=== PATIENT | female | born 1990 | race Caucasian/White ===

== ENCOUNTER 2016-06-03 16:24 | Observation (INO) | payer OTHER ==
[2016-06-03] MEDS ORDERED: DEXTROSE 5%-LACTATED RINGERS 1,000 ML IV PRN (16:49)
[2016-06-03] MEDS ORDERED: PENICILLIN G POTASSIUM 5 MILLIONUNT in DEXTROSE 5 % IN WATER 100 ML IV ONE ×2 (16:49)
[2016-06-03] MEDS ORDERED: NIFEdipine 10 MG CAPSULE PO STA (16:49)
[2016-06-03] MEDS ORDERED: RINGERS SOLUTION,LACTATED 1,000 ML IV PRN (16:49)
[2016-06-03] MEDS ORDERED: BETAMETH ACET/BETAMET SOD PHOS 6 MG/ML VIAL IM SCH (17:00)
[2016-06-03] MEDS ORDERED: PENICILLIN G POTASSIUM 2.5 MILLIONUNT in DEXTROSE 5 % IN WATER 100 ML IV SCH ×2 (20:50)
[2016-06-03] MEDS ORDERED: hydrOXYzine PAMOATE 50 MG CAPSULE PO ONE (22:30)
[2016-06-03] MEDS ORDERED: hydrOXYzine PAMOATE 25 MG CAPSULE ONE (22:41)
[2016-06-04 06:43] VITALS: BP 108/56
== END 2016-06-04 08:28 | disposition home or self-care (01) ==
LOC: OBCLINIC 16:24 → OB 21:52
PROVIDERS: ADMIT Obstetrics & Gynecology; ATTEND Obstetrics & Gynecology
DX: O60.03 Preterm labor without delivery, third trimester (principal); Z3A.30 30 weeks gestation of pregnancy; O99.333 Smoking (tobacco) complicating pregnancy, third trimester; O26.873 Cervical shortening, third trimester
CPT/HCPCS: 59025; 96365; 96375; G0378

== ENCOUNTER 2016-07-06 10:45 | Emergency (ER) | payer OTHER ==
[2016-07-06 11:08] LABS: Hemoglobin 10.1 gm/dL (12.5-16.0); Mean Cell Volume 82.2 fl (78-100); Mean Corpuscular Hemoglobin 26.8 pg (27-31); Mean Corpuscular Hgb Conc 32.6 g/dl (32-36); Mean Platelet Volume 8.2 fl (6.0-9.5); Neutrophil # 9.1 K/mm3 (1.3-6.0); Platelet Count 214 K/mm3 (150-450); Red Blood Count 3.77 M/mm3 (4.2-5.4); Red Cell Distribution Width 13.4 % (11.5-14.0); White Blood Count 12.4 K/mm3 (4.0-10.5)
[2016-07-06] MEDS ORDERED: DEXTROSE 5%-LACTATED RINGERS 1,000 ML IV PRN (11:08)
[2016-07-06 11:20] LABS: Albumin * 2.6 gm/dl (3.4-5.0); BUN/Creatinine Ratio 6.5 (9.0-21.6); Bilirubin, Total 0.3 mg/dL (0.0-1.1); Ca. Corrected For Albumin 9.3 mg/dL (8.4-10.2); Calcium * 8.5 mg/dL (7.9-10.9); Carbon Dioxide 25.9 mmol/L (24-32.6); Magnesium 1.5 mg/dL (1.2-2.8); Potassium 3.9 mmol/L (3.4-4.6); Total Protein 6.5 gm/dL (6.2-8.2)
--- NOTE | 2016-07-06 12:52 | ERNOTE ---
Medical Problem HPI - General Chief Complaint: General Assessment Time Seen by Provider: 07/06/16 10:52 Source: patient, family - Immun/Allergies/Home Medications Immunizations: IMMUNIZATION HX Immunizations Up to Date Yes History of Influenza Vaccine Yes Hx Pneumococcal Vaccination No Allergies/Adverse Reactions: Allergies No Known Allergies Allergy (Verified 07/06/16 11:54) Home Medications: HOME MEDICATIONS Doxylamine Succinate [Unisom] 1 tab PO DAILY 05/19/16 [Last Taken 06/02/16 21:00 ] Ferrous Sulfate [Iron] 1 tab PO HS 05/19/16 [Last Taken 06/02/16 09:00] Vit#96/Ferrous Fum/FA [ S] 1 tab PO DAILY 05/19/16 [Last Taken 06/03/16] Progesterone [Progesterone Vaginal Suppository] 1 supp VG HS 05/19/16 [Last Taken 06/02/16 21:00] - History of Present History Narrative: Patient has been having spasms in her hands for the past 24 hours. She states that she's been having some low-grade diarrhea and is also worried that possibly her amniotic fluid had broken. She denies any vaginal bleeding or any extensive cramping in the pelvic area. Date (Duration): 07/05/16 Timing: intermittent Severity: mild Review of Systems - Review of Systems Constitutional: Present: See HPI EYE: Present: no symptoms reported ENT: Present: no symptoms reported Respiratory: Present: no symptoms reported Cardiology: Present: no symptoms reported Gastrointestinal/Abdominal: Present: diarrhea Genitourinary: Present: no symptoms reported Musculoskeletal: Present: no symptoms reported Skin: Present: no symptoms reported Neurological: Present: no symptoms reported Endocrine: Present: no symptoms reported Hematologic/Lymphatic: Present: no symptoms reported Psych: Present: no symptoms reported - Patient's Past Medical History Patient History - Medical: Anemia, Anxiety, Chronic Pain, Depression, Migraines , UTI'S Patient History - Cardiac/Respiratory: No pertinent hx Patient History - Cancer: No Hx of Cancer Patient History - Surgical Procedures: Appendectomy, T & A Patient History - Other: None LMP (Calendar): 09/08/15 - Family History Grandfather-Paternal Family History - Medical: No pertinent hx Family History - Cardiac/Respiratory: No pertinent hx Grandmother-Paternal Family History - Medical: , Arthritis Family History - Cardiac/Respiratory: No pertinent hx Brother Family History - Medical: ADHD, Bipolar, Other Family History - Cardiac/Respiratory: No pertinent hx - Social History Living Situations: home Abuse History: No History of abuse Psych History: Hx of Anxiety, Hx of Depression Does anyone smoke in the home?: Yes Alcohol Use: none Drug Use: none - Immunizations Immunizations Up to Date: Yes Hx Pneumococcal Vaccination: No History of Influenza Vaccine: Yes Physical Exam - Physical Exam General Appearance: Present: wd/wn, alert, mild distress Eye Exam: Normal inspection: bilateral, PERRL: bilateral Ears, Nose, Throat: Present: normal ENT inspection, H, normal pharynx Neck: Present: normal inspection, nontender Respiratory: Present: no respiratory distress, normal breath sounds, no accessory muscle use, chest nontender, lungs clear Cardiovascular/Chest: Present: regular rate, rhythm, no murmur, normal peripheral pulses Gastrointestinal/Abdominal: Present: normal bowel sounds, nontender, nondistended, soft, no organomegaly Rectal Exam: Present: deferred Back Exam: Present: normal inspection, normal range of motion Extremity Exam: Present: normal inspection, non-tender, normal range of motion, no edema, other - carpal pedal spasms Neurological Exam: Present: alert, oriented, normal mood/affect Skin Exam: Present: normal color, warm/dry Lymphatic Exam: Present: no adenopathy ED Progress - Results and Orders Patient's Lab Results:: I have reviewed the patient's lab results. - Vital Signs Patient's Vital Signs:: I have reviewed the patient's vital signs. Vital Signs: Vital Signs 07/06/16 07/06/16 07/06/16 11:01 11:28 11:34 Temperature 37.2 C 37.2 C Pulse Rate 93 80 80 Respiratory 18 16 Rate Blood Pressure 113/68 114/59 114/59 O2 Sat by Pulse 98 97 100 Oximetry 07/06/16 07/06/16 11:48 12:31 Temperature Pulse Rate 78 75 Respiratory 13 Rate Blood Pressure 105/59 93/56 O2 Sat by Pulse 97 98 Oximetry - CT/Ultrasound CT/Ultrasound Narrative: OB ultrasound - Progress/Reassessment Chief Complaint: General Assessment Progress:: Improved Plan - Plan Plan: While the patient was in the department we had been an NST done which was revealed that the patient was not in labor, pelvic examination was also undertaken and she was found to be 1 cm dilation of the cervical os and approximately 50% effaced with good ballottement, nitrazine was seen was negative. Departure - Departure Clinical Impression: Discomfort during , [place] spasm Disposition: Home self-care Condition: Good Instructions: Third Trimester of , [id number] Referrals: Marco Moore DO [Staff Physician] -
[2016-07-06 12:54] VITALS: BP 107/66
== END 2016-07-06 13:06 | disposition home or self-care (01) ==
LOC: ER 10:45
DX: R29.0 Tetany (principal); Z33.1 Pregnant state, incidental; Z57.31 Occupational exposure to environmental tobacco smoke

== ENCOUNTER 2016-07-25 19:18 | Inpatient (IN) | payer OTHER ==
[2016-07-25] MEDS ORDERED: RINGERS SOLUTION,LACTATED 1,000 ML IV ONE (23:24)
[2016-07-25] MEDS ORDERED: LIDOCAINE HCL 50 ML VIAL PERI PRN (23:24)
[2016-07-26] MEDS ORDERED: BUPIVACAINE HCL/0.9 % NACL/PF 250 ML EP PRN (00:19)
[2016-07-26] MEDS: DEXTROSE 5%-LACTATED RINGERS 1,000 ML IV PRN ×2 (00:20→05:04)
[2016-07-26] MEDS ORDERED: OXYTOCIN/DEXTROSE 5%-WATER 30 UNITS/500 ML BAG IV ONE ×2 (00:28→07:50)
[2016-07-26] MEDS ORDERED: fentaNYL CITRATE/PF 50 MCG/ML AMPUL IT SCH (00:30)
--- NOTE | 2016-07-26 00:30 | OR ---
Anesthesia Pre Procedure Eval Date of Service: 07/26/16 Pre Procedure Evaluation: Last Vital Signs Temp 37.2 C 07/06/16 11:34 Pulse Resp BP 107/66 07/06/16 12:53 Pulse Ox Anesthesia Pre Procedure Evaluation Heart Rate:82 Blood Pressure:108/58 Termperature:37.0 Respiratory Rate:20 SaO2:100 DATE: 07/26/2016 TIME: 00 25 INDICATIONS: Active labor, labor pain PAST MEDICAL HISTORY: Multiple rotation actively requesting labor analgesia EXAM: Heart S1-S2 regular; lungs clear ASSESSMENT OF MEDICAL STATUS: Appropriate candidate for labor analgesia PLANNED PROCEDURE: Epidural placement for labor analgesia Home Medications: HOME MEDICATIONS Vit#96/Ferrous Fum/FA [ S] 1 tab PO DAILY 05/19/16 [Last Taken 06/03/16]
--- NOTE | 2016-07-26 01:00 | OR ---
Anesthesia Procedure Note - Anesthesia Procedure Note Date of Service: 07/26/16 Narrative: Vital Signs - Last Taken Temp 37.2 C 07/06/16 11:34 Pulse Resp BP 107/66 07/06/16 12:53 Pulse Ox 07/26/16 00:58 ANESTHESIA PROCEDURE NOTE Date of Procedure: 07/26/2016 Time of procedure: 0025. Performed by: OMERO Lindsay CRNA, MSN Emt B: Zion Rodriguez RN. Preprocedure diagnosis: Active labor, labor pain. Post procedure diagnosis: Same. Procedure: Labor Epidural Placement L3 4. Indications: Labor pain. Findings: See below. Details of the procedure: The patient was placed on the side of the bed in sitting position. The patient was prepped with DuraPrep and draped in a sterile fashion. Lidocaine 1% was infiltrated to the skin and subcutaneous tissues at the level of the L3 4 interspace. The epidural space was identified using a 18-gauge Tuohy needle with [id number] technique. Fentanyl 20 g was given intrathecally the intrathecal needle was then removed and the epidural catheter was threaded approximately 4 cm, the epidural needle was then removed, and after careful aspiration 3 mL of 1.5% lidocaine with 1-200,000 epinephrine was injected without change in maternal heart rate or sensorium. The catheter was then taped in place. EBL: Minimal. Fluids: N/A. Specimen: N/A. Post procedure condition: The patient tolerated the procedure well with. Good Relief. No complications were noted. Thank you for this consultation. Jordan Massey CRNA, ARNP, MSN
--- NOTE | 2016-07-26 02:12 | PN ---
Progess Note - Interim Narrative: 07/26/16 02:10 Patient comfortable with epidural Vital signs stable. FHT: 120 baseline, reassuring Contractions q 2-3 min Cervix: 7/80/-1, AROM-clear Impression: Intrauterine at 37-6/7 weeks in labor Plan: Continue present plan
--- NOTE | 2016-07-26 07:48 | OR ---
Operative Report - Dictated Report Narrative: Spontaneous vaginal delivery of viable female at 0710 on 07/26/2016 with Apgars 9 and 9, weighing 2700 g, in OA position. Nuchal cord 2, body cord 1. Cord clamping delayed approximately 1 minute Placenta delivered complete, intact, with three vessel cord Estimated blood loss: less than 50 ml Lacerations: None History for MU Definition: * The number of deliveries resulting in a live the patient experienced prior to current hospitalization * The previous delivery of live twins or any live multiple gestation is considered one live event. *If primagravida or nulliparous is documented select zero for the number of previous live births. Live Events: 3
[2016-07-26] MEDS ORDERED: oxyCODONE HCL/ACETAMINOPHEN 1 TAB TABLET PO PRN (07:50)
[2016-07-26] MEDS ORDERED: GLYCERIN/WITCH HAZEL LEAF 40 APPL BOX TP PRN (07:50)
[2016-07-26] MEDS ORDERED: BISACODYL 10 MG SUPP.RECT RC PRN (07:50)
[2016-07-26] MEDS ORDERED: SENNOSIDES 8.6 MG TABLET PO PRN (07:50)
[2016-07-26] MEDS ORDERED: HYDROCORTISONE 30 APPL TUBE TP PRN (07:50)
[2016-07-26] MEDS ORDERED: BENZOCAINE/MENTHOL 81 SPRAY CAN TP PRN (07:50)
[2016-07-26] MEDS: oxyCODONE HCL/ACETAMINOPHEN 1 TAB TABLET PO PRN ×2 (10:16→21:35)
[2016-07-26] MEDS: IBUPROFEN 800 MG TABLET PO PRN ×2 (10:16→21:35)
[2016-07-26] MEDS: DOCUSATE SODIUM 100 MG CAPSULE PO SCH ×2 (10:19→20:13)
[2016-07-26] MEDS: PRENATAL VIT#96/FERROUS FUM/FA 1 TAB TABLET PO SCH (10:19)
[2016-07-26] MEDS ORDERED: ONDANSETRON HCL 4 MG TABLET PO PRN (18:49)
[2016-07-27] MEDS: oxyCODONE HCL/ACETAMINOPHEN 1 TAB TABLET PO PRN ×5 (00:58→21:28)
[2016-07-27] MEDS: IBUPROFEN 800 MG TABLET PO PRN ×3 (07:11→21:27)
--- NOTE | 2016-07-27 08:55 | PN ---
Subjective - Date and Time Seen Date: 07/27/16 Time: 08:55 - seen at 6:40 AM Objective - Vitals Vitals: Last Vital Signs Temp 36.9 C 07/27/16 01:02 Pulse 76 07/27/16 01:02 Resp 16 07/27/16 01:02 BP 107/58 07/27/16 01:02 Pulse Ox 99 07/27/16 01:02 Patient denies complaints. Lochia wnl Abdomen - soft, nontender Uterus - firm, at umbilicus - 1 No calf tenderness Impression: day #1 - s/p spontaneous vaginal delivery. Plan: Continue routine care Cauti Physician Documentation - Urinary Catheter Management Urethral (Padron) Date of Insertion: 07/26/16 Time of Insertion: 01:45
[2016-07-27] MEDS: PRENATAL VIT#96/FERROUS FUM/FA 1 TAB TABLET PO SCH (09:25)
[2016-07-27] MEDS: DOCUSATE SODIUM 100 MG CAPSULE PO SCH ×2 (09:25→21:25)
[2016-07-28] MEDS: oxyCODONE HCL/ACETAMINOPHEN 1 TAB TABLET PO PRN (07:28)
[2016-07-28] MEDS: IBUPROFEN 800 MG TABLET PO PRN (07:28)
[2016-07-28 08:20] VITALS: BP 108/66
--- NOTE | 2016-07-28 17:03 | PN ---
Subjective - Date and Time Seen Date: 07/28/16 Time: 17:03 - patient seen in between 8:30 and 9 this morning Objective - Vitals Vitals: Last Vital Signs Temp 36.8 C 07/28/16 08:10 Pulse 67 07/28/16 08:10 Resp 16 07/28/16 08:10 BP 108/66 07/28/16 08:10 Pulse Ox 98 07/28/16 08:10 Patient denies complaints. Lochia wnl Abdomen - soft, nontender Uterus - firm, at umbilicus - 2 No calf tenderness Impression: day #2 - s/p spontaneous vaginal delivery. Plan: Routine discharge instructions Cauti Physician Documentation - Urinary Catheter Management Urethral (Padron) Date of Insertion: 07/26/16 Time of Insertion: 01:45
== END 2016-07-28 13:40 | disposition home or self-care (01) | DRG 775 ==
LOC: OBCLINIC 19:18 → OB 23:00 → MS 07-27 19:21
PROVIDERS: ADMIT Obstetrics & Gynecology; ATTEND Obstetrics & Gynecology
PROC: 10E0XZZ Delivery of Products of Conception, External Approach (ICD-10-PCS; principal; 2016-07-26)
PROC: 10907ZC Drainage of Amniotic Fluid, Therapeutic from Products of Conception, Via Natural or Artificial Opening (ICD-10-PCS; 2016-07-26)
PROC: 4A1HXCZ Monitoring of Products of Conception, Cardiac Rate, External Approach (ICD-10-PCS; 2016-07-26)
PROC: 3E0S3CZ (ICD-10-PCS; 2016-07-26)
DX: O69.81X0 Labor and delivery complicated by cord around neck, without compression, not applicable or unspecified (principal); O99.334 Smoking (tobacco) complicating childbirth; F17.210 Nicotine dependence, cigarettes, uncomplicated; F41.9 Anxiety disorder, unspecified; Z3A.38 38 weeks gestation of pregnancy; Z37.0 Single live birth

== ENCOUNTER 2016-08-20 07:49 | Day surgery (SDC) | payer OTHER ==
[~2016-08-20 07:49] MED LIST: RINGER'S SOLUTION,LACTATED 1,000 ML IV PRN
[2016-08-20] MEDS ORDERED: RINGER'S SOLUTION,LACTATED 1,000 ML IV ONE ×2 (08:29→10:46)
[2016-08-20] MEDS ORDERED: BUPIVACAINE HCL/EPINEPHRINE 50 ML VIAL IJ ONE (09:15)
--- NOTE | 2016-08-20 11:07 | OR ---
Operative Report - Dictated Report Narrative: Date: 08/20/2016 Preoperative diagnosis: Incarcerated umbilical hernia Postoperative diagnosis: same Procedure: Primary umbilical hernia repair. Staff surgeon: Hiram Tubbs MD Marketing Analytics Manager surgeon: Marco Moore DO Anesthesia: GET EBL: Minimal Drains: none Complications: none apparent Description of procedure: This patient underwent the smooth induction of general endotracheal anesthesia for a laparoscopic tubal ligation performed by Dr. Moore. The abdomen was prepped and draped in a sterile fashion. A field block was performed with marcaine and a curvilinear infraumbilical incision was carried out. The hernia sac was opened and the laparoscopy was performed through this defect. Following the conclusion of his procedure the fascial rim was completely dissected free and the hernia sac and incarcerated fat contents were removed from the undersurface of the dermis of the umbilicus. The defect measured approximately 2 cm in diameter. The midline fascia was considerably thinned out. The defect was closed in the midline with interrupted [id number] 0-vicryl sutures x 3. Following this Dr. Moore repaired her diastasis recti. A suprapubic port site and her umbilical incision were closed with interrupted buried subcuticular stitches of 4-0 vicryl and sealed with dermabond. The patient tolerated the procedure well without apparent complications and was discharged from the operating room in stable condition.
[2016-08-20] MEDS ORDERED: RINGER'S SOLUTION,LACTATED 1,000 ML IV PRN (11:38)
[2016-08-20] MEDS ORDERED: MORPHINE SULFATE 2 MG/ML DISP.SYRIN IV PRN (11:39)
[2016-08-20] MEDS ORDERED: IBUPROFEN 800 MG TABLET PO PRN (11:40)
--- NOTE | 2016-08-20 11:52 | OR ---
Operative Report - Dictated Report Narrative: DATE OF PROCEDURE: 08/20/2016 INDICATION: 86 year old female desires permanent sterilization by removal of both fallopian tubes as well as repair of umbilical hernia and rectus diathesis. PREOPERATIVE DIAGNOSIS: Multiparity, desires permanent sterilization, umbilical hernia with incarcerated fat, rectus diathesis POSTOPERATIVE DIAGNOSIS: Same OPERATION: Laparoscopic bilateral salpingectomy, repair of rectus diathesis, and repair of umbilical hernia by Dr. Tubbs SURGEON: Mathew Moore D.O. ROTOFORMER BACKTENDER: Clara Haines M.D. ANESTHESIA: General ESTIMATED BLOOD LOSS: Minimal FLUID REPLACEMENT: 700 mL URINE OUTPUT: Not measured FINDINGS: Normal uterus, tubes, and ovaries. Umbilical hernia with incarcerated fat pad, rectus diathesis SPECIMEN(S): Fallopian tubes DRAINS: none TECHNIQUE: The patient was taken to the operating room and placed in dorsal lithotomy position after adequate general anesthesia was obtained. The anterior lip of the cervix was grasped with a long Allis clamp and a uterine manipulator was inserted into the cervical canal and attached to the Allis clamps as a means to manipulate the uterus. Bladder was drained prior to patient entering the OR. Gloves were changed and attention was turned to the abdomen where the umbilicus and suprapubic region were injected with 0.5% marcaine with epinephrine. Dr Tubbs made an umbilical incision over the fascial defect through which the 10mm operative scope was placed. A suture was placed to seal the scope. Pneumoperitoneum was created with CO2 gas. A 5 mm non-bladed trocar was inserted suprapubically under direct visualization. Through these 2 ports the surgery was carried out with findings as noted above. The right fallopian tube was identified and followed out to the fimbriated end. The fallopian tube was coagulated with the Kleppinger's approximately 2 cm from the cornual region and along the mesosalpinx. The tube was then excised with laparoscopic scissors and placed in the anterior cul de sac. The exact same was done on the patient's left side. Both tubes were then removed with the scope through the umbilical incision. The CO2 gas was removed from the abdominal cavity. The trochar was removed under direct visualization. Dr. Tubbs repaired the hernia - see his operative note for details. The medial surface of the rectus abdominis muscle was grasped on either side with a Arti clamp just below the umbilicus and approximated with a single 0 Vicryl suture. The subcutaneous tissue was dissected above the umbilicus to allow another 0 Vicryl suture to be placed through the rectus abdominis muscle cephalad to the umbilicus. Incisions were closed by Dr. Tubbs. Instruments were removed from the cervix and vagina. Sponge, lap, instrument, and needle count were correct x 2. DISPOSITION: The patient was awakened and transferred to post anesthesia care unit in good condition.
[2016-08-20] MEDS: oxyCODONE HCL/ACETAMINOPHEN 1 TAB TABLET PO PRN ×2 (11:53→12:32)
[2016-08-20] MEDS ORDERED: oxyCODONE HCL/ACETAMINOPHEN 1 TAB TABLET PO ONE (12:45)
[2016-08-20 17:05] VITALS: BP 107/78
== END 2016-08-20 07:50 | disposition home or self-care (01) ==
LOC: AMB 07:49
PROVIDERS: ATTEND Obstetrics & Gynecology
PROC: 0UT74ZZ Resection of Bilateral Fallopian Tubes, Percutaneous Endoscopic Approach (ICD-10-PCS; principal; 2016-08-20 09:25)
PROC: 0WQF0ZZ Repair Abdominal Wall, Open Approach (ICD-10-PCS; 2016-08-20 09:25)
DX: Z30.2 Encounter for sterilization (principal); K42.0 Umbilical hernia with obstruction, without gangrene; F17.200 Nicotine dependence, unspecified, uncomplicated; Z68.20 Body mass index [BMI] 20.0-20.9, adult

== ENCOUNTER 2016-10-25 14:09 | Emergency (ER) | payer OTHER ==
--- NOTE | 2016-10-25 14:58 | ERNOTE ---
ER Female HPI Date of Service: 10/25/16 Stated Complaint: SICK, UTI Presenting Symptoms: other - "I think I have a UTI" Time Seen by Provider: 10/25/16 14:54 Source: patient Exam Limitations: no limitations Immunizations: IMMUNIZATION HX Immunizations Up to Date Yes History of Influenza Vaccine Yes Hx Pneumococcal Vaccination No Allergies/Adverse Reactions: Allergies No Known Allergies Allergy (Verified 10/25/16 14:23) Home Medications: HOME MEDICATIONS Cefuroxime Axetil [Ceftin] 250 mg PO Q12H #14 tab 10/25/16 [Last Taken Unknown] - History of Present Illness Narrative: Patient presents relating "I think I have a UTI". She relates that everyone in the family has had a vomiting/diarrhea illness. She has also had one episode of vomiting and some non-bloody diarrhea but thinks she has a UTI as she has had some dysuria. Had tubal ligation. Mild dysuria. No fever or abdominal pain. Has not seen anyone else for this. Nothing makes this better or worse. No flank pain. Timing: Present: other - with urination Quality: Present: mild Onset Location: Present: other - dysuria Radiation: Present: none Activities at Onset: Present: none Prior Abdominal Problems: Present: none Sexual [place] History: Present: other - tubal ligation Modifying Factors - (Improves): Present: other - nothing Modifying Factors - (Worsens): Present: other - urinating Associated Symptoms: Present: dysuria. Absent: fever/chills, abdominal pain, urinary frequency, low back pain Prior Treatment: Absent: recently seen Review of Systems - Review of Systems Constitutional: Absent: fever Respiratory: Absent: shortness of breath Cardiology: Absent: chest pain Gastrointestinal/Abdominal: Present: See HPI Genitourinary: Present: dysuria Musculoskeletal: Present: no symptoms reported Skin: Absent: rash Neurological: Absent: weakness - Patient's Past Medical History Patient History - Medical: Anemia, Anxiety, Chronic Pain, Depression, Migraines , UTI'S, Other Patient History - Cardiac/Respiratory: No pertinent hx Patient History - Cancer: No Hx of Cancer Patient History - Surgical Procedures: Appendectomy, T & A, Other Patient History - Other: None LMP (Calendar): 09/08/15 - Family History Grandfather-Paternal Family History - Medical: , No pertinent hx Family History - Cardiac/Respiratory: No pertinent hx Family History - Cancer: Liver Grandmother-Paternal Family History - Medical: , Arthritis Family History - Cardiac/Respiratory: No pertinent hx Family History - Cancer: Bone, Breast, Other Brother Family History - Medical: ADHD, Bipolar, Other Family History - Cardiac/Respiratory: No pertinent hx Family History - Cancer: No pertinent family hx - Social History Living Situations: home Abuse History: No History of abuse Psych History: Hx of Anxiety, Hx of Depression Does anyone smoke in the home?: Yes Smoking Status: Current every day smoker Alcohol Use: none Drug Use: other - Immunizations Immunizations Up to Date: Yes Hx Pneumococcal Vaccination: No History of Influenza Vaccine: Yes Physical Exam - Physical Exam General Appearance: Present: alert, no apparent distress, other - interactive, well hydrated, non-toxic, no distress. Head Exam: Present: normal inspection Eye Exam: Normal inspection: bilateral, PERRL: bilateral Ears, Nose, Throat: Present: normal ENT inspection Neck: Present: normal inspection Respiratory: Present: no respiratory distress, normal breath sounds, lungs clear Cardiovascular/Chest: Present: regular rate, rhythm Gastrointestinal/Abdominal: Present: normal bowel sounds, nontender, nondistended, soft. Absent: tenderness Back Exam: Present: no CVA tenderness. Absent: CVA tenderness (R), CVA tenderness (L) Extremity Exam: Present: normal inspection Neurological Exam: Present: alert, normal mood/affect, no motor/sensory deficits Skin Exam: Present: normal color, warm/dry ED Progress - Results and Orders Patient's Lab Results:: I have reviewed the patient's lab results. - Vital Signs Patient's Vital Signs:: I have reviewed the patient's vital signs. Vital Signs: Vital Signs 10/25/16 14:20 Temperature 36.6 C Pulse Rate 85 Respiratory 12 Rate Blood Pressure 100/67 O2 Sat by Pulse 98 Oximetry - Progress/Reassessment Chief Complaint: Genitourinary Problem Progress Note-Subjective: 10/25/16 15:57 Mild UTI. No suggestion of sepsis, kidney stone or pyelonephritis. Will place on ABx and have close f/u. She is agreeable. i dicussed warning signs and reasons to return as well as the need for close f/u. Departure Clinical Impression: UTI (urinary tract infection) - Departure Disposition: Home self-care Condition: Stable Instructions: Urinary Tract Infection, Adult, [id number] Additional Instructions: Rest. Fluids. Antibiotics as directed. Follow-up thursday for a re-check with your doctor. Return here for fever, flank pain, vomiting or if your condition worsens or changes in any way. Prescriptions: Cefuroxime Axetil [Ceftin] 250 mg PO Q12H #14 tab
[2016-10-25 15:43] LABS: Urine Appearance Slightly Cloudy; Urine Color Yellow
[2016-10-25 15:44] LABS: Urine Bilirubin Negative (NEGATIVE); Urine Ketone Negative (NEGATIVE); Urine pH 5.5 pH (5.0-7.0)
[2016-10-25 15:45] LABS: Urine Blood 10 /ul (NEGATIVE); Urine Nitrite Negative (NEGATIVE); Urine Protein Negative (NEGATIVE); Urine RBC None Seen /hpf (0-5); Urine Urobilinogen Normal (NORMAL)
[2016-10-25 15:48] LABS: Urine Bacteria TRACE
[2016-10-25 17:37] VITALS: BP 104/72
== END 2016-10-25 16:10 | disposition home or self-care (01) ==
LOC: ER 14:09
DX: N39.0 Urinary tract infection, site not specified (principal); F17.200 Nicotine dependence, unspecified, uncomplicated